=== PATIENT | male | born 1990 | race Two or more races ===

== ENCOUNTER 2022-10-12 08:05 | Emergency (ER) | payer SELFPAY ==
[~2022-10-12] VITALS: Ht 190.5 cm; Wt 147.0 kg
[2022-10-12 08:50] VITALS: BP 147/109; PULSE 84; RESP 16; TEMP 98.7; O2SAT 98
[2022-10-12] MEDS ORDERED: KETOROLAC TROMETH 30 MG/ML 1ML VIAL IM ONE (09:30)
[2022-10-12] MEDS ORDERED: ACETAMINOPHEN 500 MG TAB PO ONE (09:30)
== END 2022-10-12 09:54 | disposition home or self-care (01) ==
LOC: ER 08:05
DX: M76.61 Achilles tendinitis, right leg (principal)
CPT/HCPCS: 73610; 73630; 96372; 99284; J1885